=== PATIENT | male | born 1985 | race Caucasian/White ===

== ENCOUNTER 2023-01-27 20:25 | Emergency (ER) | payer OTHER ==
[~2023-01-27] VITALS: Ht 193 cm; Wt 104.3 kg
[2023-01-27 21:00] VITALS: BP 160/110
--- NOTE | 2023-01-27 21:03 | NUR ---
TO LOBBY A/W BED VIA W/C
[2023-01-27] MEDS ORDERED: MORPHINE SULFATE 4 MG/ML SYR IM ONE ×2 (21:40→22:50)
--- NOTE | 2023-01-27 21:40 | NUR ---
PT TO BED #10
--- NOTE | 2023-01-27 21:41 | NUR ---
Patient being evaluated by physician
[2023-01-27] MEDS ORDERED: NAPR-54 PO (22:46)
[2023-01-27 22:57] VITALS: BP 160/110
== END 2023-01-27 22:57 | disposition home or self-care (01) ==
LOC: MED 20:25
DX: S53.401A Unspecified sprain of right elbow, initial encounter (principal); S93.401A Sprain of unspecified ligament of right ankle, initial encounter; M25.561 Pain in right knee; Z79.01 Long term (current) use of anticoagulants; V89.2XXA Person injured in unspecified motor-vehicle accident, traffic, initial encounter; Y93.89 Activity, other specified; Y92.410 Unspecified street and highway as the place of occurrence of the external cause; Y99.8 Other external cause status
CPT/HCPCS: 73560; 73600; 96372; 99284; J2270